=== PATIENT | male | born 1995 | race African-American/Black ===

== ENCOUNTER 2023-02-10 01:34 | Emergency (ER) | payer OTHER, BC, SELFPAY ==
[2023-02-10 01:39] VITALS: BP 135/78; PULSE 84; RESP 18; TEMP 36.7; O2SAT 99; BMI 29.8
--- NOTE | 2023-02-10 01:48 | ED.GENADULT ---
HPI - General Adult General Time Seen by Provider: 01:49 Date Seen: 02/10/23 Chief complaint: Laceration/Wound Stated complaint: laceration, above left eye Time Seen by Provider: 02/10/23 01:39 Source: patient, RN notes reviewed and old records reviewed History of Present Illness HPI narrative: 19-year-old male who comes in today with a laceration over the left eye. 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 No loss of consciousness or other injury. Cleaned it at work. Last 2019 Related Data Home Medications Medication Instructions Recorded Confirmed No Known Home Medications 02/10/23 02/10/23 Allergies Allergy/AdvReac Type Severity Reaction Status Date / Time No Known Drug Allergies Allergy Verified 02/10/23 01:42 PFSH PFS Medical History (Updated 02/10/23 @ 02:05 by James Berg MD) No significant past medical history Surgical History (Updated 02/10/23 @ 01:46 by Keegan Blount RN) No significant past surgical history Social History Smoking Status: Current every day smoker Second hand tobacco smoke exposure: Yes How often do you have a drink containing alcohol: never How often do you have six or more drinks on one occasion: Never AUDIT-C Alcohol total score: 0 Non-prescribed substance use: denies use Exam Narrative: Exam Narrative: General: well nourished , NAD Head: 1 cm straight full-thickness laceration just inferior to the lateral edge of the left eyebrow ENT: External ears and external nose are normal Eyes: Conjunctiva clear, pupils are equal reactive, external ocular motions are intact Neck: Full spontaneous range of motion of the neck Lungs: No respiratory distress Musculoskeletal: No tenderness or deformity Neurologic: No gross focal neurologic deficits Skin: No rashes Psych: Mood and affect are appropriate Const: Vital Signs, click to edit/add: Vital Signs - 24 hr 02/10/23 01:39 Temperature 98.0 F Pulse Rate [Right Pulse Oximeter] 84 Respiratory Rate 18 Blood Pressure [Ri ght Upper Arm] 135/78 Pulse Oximetry 99 Oxygen Delivery Me thod Room Air Course Course Hospital Course: Patient seen examined, prior records reviewed. Patient presents with a laceration just under the left eyebrow. Mild swelling around this. Discussed treatment and this wound would benefit from sutures. Procedure: Laceration repair, 1 cm full-thickness laceration, left eyebrow. Risks and benefits discussed with the patient, verbal consent obtained. Lidocaine 1% with epinephrine 1 mL total injected around the wound edges. Wound was cleansed with wound cleanser and explored, no foreign bodies found. No active bleeding. Laceration was closed with 2 simple interrupted sutures of 6 0 Ethilon Patient tolerated this well. Wound care discussed and patient is stable for discharge. Vital Signs Vital signs: Initial Vital Signs Temperature 98.0 F 02/10/23 01:39 Temperature Source Temporal Artery Scan 02/10/23 01:39 Pulse Rate 84 02/10/23 01:39 Respiratory Rate 18 02/10/23 01:39 Blood Pressure 135/78 02/10/23 01:39 Blood Pressure Mean 97 02/10/23 01:39 Blood Pressure Position Sitting 02/10/23 01:39 Pulse Oximetry 99 02/10/23 01:39 Oxygen Delivery Method Room Air 02/10/23 01:39 Vital Signs Temperature 98.0 F 02/10/23 01:39 Pulse Rate 84 02/10/23 01:39 Respiratory Rate 18 02/10/23 01:39 Blood Pressure 135/78 02/10/23 01:39 Pulse Oximetry 99 02/10/23 01:39 Oxygen Delivery Method Room Air 02/10/23 01:39 Temperature 98.0 F 02/10/23 01:39 Pulse Rate 84 02/10/23 01:39 Respiratory Rate 18 02/10/23 01:39 Blood Pressure 135/78 02/10/23 01:39 Pulse Oximetry 99 02/10/23 01:39 Oxygen Delivery Method Room Air 02/10/23 01:39 Discharge Plan Discharge Clinical Impression: Laceration of eyebrow, left Patient Disposition: Home, Self-Care Condition: Stable Instructions: Facial Laceration (ED) Additional Instructions: Wash gently daily with soap and water. Apply antibiotic ointment daily. Dressing or Band-Aid as desired. Sutures should be removed in 1 week Activity Level: No Restrictions Discharge Diet: Regular Prescriptions: No Action No Known Home Medications Stand Alone Forms: MyHealth Info Instructions
[2023-02-10 02:12] VITALS: BP 135/78; PULSE 84; RESP 18; TEMP 36.7
[2023-02-10 02:13] VITALS: BP 125/70; PULSE 79; RESP 18; TEMP 36.7; O2SAT 99
--- NOTE | 2023-02-10 02:13 | ED.NURSE ---
suture site cleaned up and bacitracin applied. left open to air. pt. dc'd home with SO.
== END 2023-02-10 02:45 | disposition home or self-care (01) ==
PROVIDERS: Emergency Provider Family Medicine
DX: S01.112A Laceration without foreign body of left eyelid and periocular area, initial encounter (principal); W22.8XXA Striking against or struck by other objects, initial encounter; Y99.0 Civilian activity done for income or pay
CPT/HCPCS: 12001; 99283

== ENCOUNTER 2023-02-18 13:26 | Emergency (ER) | payer OTHER, BC, SELFPAY ==
[2023-02-18 13:31] VITALS: BP 124/71; PULSE 70; RESP 16; TEMP 36.8; O2SAT 96; BMI 27.4
--- NOTE | 2023-02-18 13:42 | ED.GENADULT ---
HPI - General Adult General Chief complaint: Unspecified Complaint, Adult Stated complaint: Needs stitches removed Time Seen by Provider: 02/18/23 13:31 Source: patient Mode of arrival: ambulatory Limitations: no limitations History of Present Illness HPI narrative: 27-year-old male coming in today requesting suture removal. Has no other concerns. Had sutures placed last Tuesday over the left eyebrow. Related Data Home Medications Medication Instructions Recorded Confirmed No Known Home Medications 02/10/23 02/18/23 Allergies Allergy/AdvReac Type Severity Reaction Status Date / Time No Known Drug Allergies Allergy Verified 02/18/23 13:34 [facility] Medical History (Updated 02/18/23 @ 13:43 by Carmen Spangler MD) No significant past medical history Surgical History (Updated 02/10/23 @ 01:46 by Keegan Blount RN) No significant past surgical history Social History Smoking Status: Current every day smoker Do you use any of these nicotine containing products: None Second hand tobacco smoke exposure: Yes How often do you have a drink containing alcohol: never How often do you have six or more drinks on one occasion: Never AUDIT-C Alcohol total score: 0 Non-prescribed substance use: denies use Exam Narrative: Exam Narrative: Well-healed laceration just below the left eyebrow. Two sutures are in place. Const: Vital Signs, click to edit/add: Vital Signs - 24 hr 02/18/23 13:31 Temperature 98.2 F Pulse Rate [Pulse Oximeter] 70 Respiratory Rate 16 Blood Pressure [Le ft Upper Arm] 124/71 Pulse Oximetry 96 Oxygen Delivery Me thod Room Air Course Course Hospital Course: To sutures removed without incident after area was clean. Vital Signs Vital signs: Initial Vital Signs Temperature 98.2 F 02/18/23 13:31 Temperature Source Temporal Artery Scan 02/18/23 13:31 Pulse Rate 70 02/18/23 13:31 Respiratory Rate 16 02/18/23 13:31 Blood Pressure 124/71 02/18/23 13:31 Blood Pressure Mean 88 02/18/23 13:31 Blood Pressure Position Sitting 02/18/23 13:31 Pulse Oximetry 96 02/18/23 13:31 Oxygen Delivery Method Room Air 02/18/23 13:31 Vital Signs Temperature 98.2 F 02/18/23 13:31 Pulse Rate 70 02/18/23 13:31 Respiratory Rate 16 02/18/23 13:31 Blood Pressure 124/71 02/18/23 13:31 Pulse Oximetry 96 02/18/23 13:31 Oxygen Delivery Method Room Air 02/18/23 13:31 Temperature 98.2 F 02/18/23 13:31 Pulse Rate 70 02/18/23 13:31 Respiratory Rate 16 02/18/23 13:31 Blood Pressure 124/71 02/18/23 13:31 Pulse Oximetry 96 02/18/23 13:31 Oxygen Delivery Method Room Air 02/18/23 13:31 Medical Decision Making MDM Narrative Medical decision making narrative: 27-year-old male requesting suture removal. Two sutures removed per above. Discharge Plan Discharge Clinical Impression: Visit for suture removal Patient Disposition: Home, Self-Care Condition: Stable Prescriptions: No Action No Known Home Medications Follow Up/Referrals: Provider,Not a Local [Primary Care Provider] - Stand Alone Forms: MyHealth Info Instructions
== END 2023-02-18 13:48 | disposition home or self-care (01) ==
LOC: ED 13:45
PROVIDERS: Emergency Provider Family Medicine
DX: Z48.01 Encounter for change or removal of surgical wound dressing (principal)
CPT/HCPCS: 99281; 99282